=== PATIENT | female | born 1955 | race Caucasian/White ===

== ENCOUNTER → 2016-11-26 | Outpatient (CLI) | payer BC ==
[2016-11-26 09:25] LABS: Basophils # (A) 0.1 k/uL (0-0.2); Basophils % (A) 1 %; CH 30.6; CHCM 34.6; Eosinophils # (A) 0.1 k/uL (0-0.7); Eosinophils % (A) 2 %; HCT 45.6 % (34.0-46.0); HDW 2.69; HGB 15.6 gm/dL (11.4-16.0); Luc # (Auto) 0.25; Luc % (Auto) 4; Lymphocytes # (A) 2.1 k/uL (1.0-4.8); Lymphocytes % (A) 34 %; MCH 30.4 pg (25.0-35.0); MCHC 34.1 g/dL (31.0-37.0); MCV 89.1 fL (80.0-100.0); Mean Platelet Volume 7.1; Monocytes # (A) 0.6 k/uL (0-1.0); Monocytes % (A) 10 %; Neutrophils # (A) 2.9 k/uL (1.3-7.7); Neutrophils % (A) 48 %; RBC 5.12 m/uL (3.80-5.40); RDW 12.9 % (11.5-15.5); WBC (Perox) 5.48
[2016-11-26 09:27] LABS: ALT 33 U/L (9-52); AST 31 U/L (14-36); Alkaline Phosphatase 85 U/L (38-126); Anion Gap 9 mmol/L; Blood Urea Nitrogen 18 mg/dL (7-17); Calcium 9.9 mg/dL (8.4-10.2); Carbon Dioxide 25 mmol/L (22-30); Chloride 108 mmol/L (98-107); Cholesterol 247 mg/dL (<200); Glucose 107 mg/dL (74-99); HDL Cholesterol 55 mg/dL (40-60); Non-African American GFR(MDRD) >60 (>60 ml/min/1.73 sqM); Potassium 4.8 mmol/L (3.5-5.1); Sodium 142 mmol/L (137-145); Total Bilirubin 0.8 mg/dL (0.2-1.3); Total Protein 7.8 g/dL (6.3-8.2); Triglycerides 191 mg/dL (<150)
--- NOTE | 2016-11-26 14:40 | MM ---
Reason for exam: screening (asymptomatic). Last mammogram was performed 1 year and 5 months ago. History: Patient is postmenopausal. Taking unspecified hormones for 1 year beginning at age 49. Physical Findings: A clinical breast exam by your physician is recommended on an annual basis and results should be correlated with mammographic findings. MG Screening Mammo w CAD Bilateral CC and MLO view(s) were taken. Prior study comparison: July 09, 2015, bilateral MG screening mammo w CAD. May 31, 2014, bilateral MG screening mammo w CAD. The breast tissue is almost entirely fat. There is no discrete abnormality. No significant changes when compared with prior studies. ASSESSMENT: Negative, BI-RAD 1 RECOMMENDATION: Routine screening mammogram of both breasts in 1 year.
== END | disposition home or self-care (01) ==
LOC: RADMAMWWP 08:31
PROVIDERS: ATTEND Family Medicine
DX: Z12.31 Encounter for screening mammogram for malignant neoplasm of breast (principal); Z00.01 Encounter for general adult medical examination with abnormal findings; E03.9 Hypothyroidism, unspecified
CPT/HCPCS: 84439; 80061; 80053; 84443; 85025; 36415; G0202

== ENCOUNTER → 2017-08-30 | Outpatient (CLI) | payer OTHER ==
--- NOTE | 2017-08-30 14:48 | CT ---
EXAMINATION TYPE: CT cervical spine wo con DATE OF EXAM: 08/30/2017 COMPARISON: NONE HISTORY: Cervical strain CT DLP: 316.[address] of the cervical spine was performed with bone and soft tissue window settings submitted . Coronal and sagittal reconstruction is obtained. C2-3: Within normal limits. C3-4: Moderate degenerative disc space narrowing. Mild circumferential disc bulge with mild effacemen t ventral thecal sac. No evidence for herniation or central stenosis. Degenerative change left-sided cervical apophyseal joint resulting in moderate left foraminal encroachment. C4-5: Moderate to severe degenerative disc space narrowing. Circumferential disc bulge with partial e ncapsulating spur resulting in disc endplate complex. Mild effacement ventral thecal sac. No central stenosis. Mild bilateral foraminal encroachment. C5-6: Changes of fusion. Pedicular screws are in place. Alignment is anatomic. No evidence for recurr ent or residual disease. No central stenosis or foraminal encroachment. C6-7: Changes of fusion. Pedicular screws are in place. Alignment is anatomic. No evidence for recurr ent or residual disease. No central stenosis or foraminal encroachment. C7-T1: Changes of fusion. Pedicular screws are in place. Alignment is anatomic. No evidence for recur rent or residual disease. No central stenosis or foraminal encroachment. Postoperative alignment is anatomic. No evidence for fracture or subluxation. IMPRESSION: 1. No evidence for fracture or subluxation. 2. Degenerative disc disease with a mild disc bulging and varying degrees of foraminal encroachment a s outlined above. 3. Postoperative changes as discussed.
--- NOTE | 2017-08-30 14:59 | XR ---
Thoracic spine HISTORY: Trauma and pain 3 views of the thoracic spine correlated to CT scan of the cervical spine same day Thoracic vertebral bodies show preserved alignment. Bone mineralization is reduced. There is mild mul tilevel spondylosis. There is a mild spinal curvature. Postop changes are noted at the cervicothoraci c junction. Mild kyphosis centered at C3. Question some mild anterior wedging. Superior endplate of C 6 also show some mild central depression. IMPRESSION: Difficult to exclude mild compression fracture T3 and T6 of indeterminate age.
== END | disposition home or self-care (01) ==
LOC: RADCTMAIN 14:09
PROVIDERS: ATTEND Emergency Medicine
DX: M50.31 Other cervical disc degeneration, high cervical region (principal); S13.4XXA Sprain of ligaments of cervical spine, initial encounter; S23.3XXA Sprain of ligaments of thoracic spine, initial encounter; Z98.890 Other specified postprocedural states
CPT/HCPCS: 72072; 72125

== ENCOUNTER → 2018-03-29 | Outpatient (CLI) | payer BC ==
--- NOTE | 2018-03-31 09:58 | MM ---
Reason for exam: screening (asymptomatic). Last mammogram was performed 1 year and 4 months ago. History: Patient is postmenopausal. Taking unspecified hormones for 1 year beginning at age 49. Physical Findings: A clinical breast exam by your physician is recommended on an annual basis and results should be correlated with mammographic findings. MG Screening Mammo w CAD Bilateral CC and MLO view(s) were taken. Prior study comparison: November 26, 2016, bilateral MG screening mammo w CAD. July 09, 2015, bilateral MG screening mammo w CAD. There are scattered fibroglandular densities. There is chronic nodularity in the right breast. No significant changes when compared with prior studies. ASSESSMENT: Negative, BI-RAD 1 RECOMMENDATION: Routine screening mammogram of both breasts in 1 year.
== END | disposition home or self-care (01) ==
LOC: RADMAMWWP 13:01
PROVIDERS: ATTEND Family Medicine
DX: Z12.31 Encounter for screening mammogram for malignant neoplasm of breast (principal)
CPT/HCPCS: 77067

== ENCOUNTER 2019-01-05 12:46 | Day surgery (SDC) | payer BC ==
[2019-01-02 14:37] VITALS: BMI 29.2
[~2019-01-05 12:46] MED LIST: LACTATED RINGERS 1,000 ML IV SCH
[2019-01-05 13:25] VITALS: TEMP 97.6
[2019-01-05] MEDS ORDERED: PROPOFOL 10 MG/ML 20 ML VIAL IV ONE (14:02)
--- NOTE | 2019-01-05 14:22 | P.PCN ---
Date of Procedure: 01/05/19 Procedure(s) Performed: BRIEF HISTORY: Patient is a 63-year-old pleasant female, scheduled for an elective colonoscopy as a part of screening for colorectal neoplasia. PROCEDURE PERFORMED: Colonoscopy with snare polypectomy. PREOPERATIVE DIAGNOSIS: Screening for colon cancer. IV sedation per Anesthesia. PROCEDURE: After informed consent was obtained, the patient, was brought into the endoscopy unit. IV sedation was administered by Anesthesia under continuous monitoring. Digital rectal examination was normal. Initially the Olympus CF-160 flexible video colonoscope was then inserted in the rectum, gradually advanced into the cecum without any difficulty. Careful examination was performed as the scope was gradually being withdrawn. Ileocecal valve and the appendiceal orifice were visualized and appeared normal. Prep was excellent. In the base of the cecum there was a 1 cm broad-based polyp that was removed by snare polypectomy. Rest of the mucosa of the cecum, ascending colon, transverse colon, appeared normal. In the descending colon there was another 5 mm polyp that was removed b y snare polypectomy. Scattered left-sided diverticulosis seen. Rest of the descending colon, sigmoid colon, and rectum appeared normal. Retroflexion was performed in the rectum and no lesions were seen. The patient tolerated the procedure well. IMPRESSION: 1 cm cecal polyp status post polypectomy 5 mm descending colon polyp status post polypectomy Scattered sigmoidal diverticulosis RECOMMENDATIONS: Findings of this examination were discussed with the patient as well as a family. She was advised to follow with the biopsy results. If the biopsy shows an adenoma, she can have a repeat colonoscopy in 3-5 years.
[2019-01-05 14:41] VITALS: BP 120/83; PULSE 65; RESP 16
== END 2019-01-05 15:20 | disposition home or self-care (01) ==
LOC: ORWHC2ENDO 12:46
PROVIDERS: ATTEND Internal Medicine Gastroenterology
DX: Z12.11 Encounter for screening for malignant neoplasm of colon (principal); K63.5 Polyp of colon; K57.30 Diverticulosis of large intestine without perforation or abscess without bleeding; E78.5 Hyperlipidemia, unspecified; E07.9 Disorder of thyroid, unspecified; Z79.899 Other long term (current) drug therapy; Z79.890 Hormone replacement therapy; Z88.5 Allergy status to narcotic agent; Z91.048 Other nonmedicinal substance allergy status
CPT/HCPCS: 45385; 88305; J2704

== ENCOUNTER → 2019-03-30 | Outpatient (CLI) | payer BC ==
--- NOTE | 2019-03-30 15:41 | US ---
EXAMINATION TYPE: US kidneys/renal and bladder DATE OF EXAM: 03/30/2019 COMPARISON: NONE CLINICAL HISTORY: N20.0 Kidney Stones. Patient stated passed 2 kidney stones recently and still has l eft flank pain. EXAM MEASUREMENTS: Right Kidney: 10.9 x 6.0 x 5.3 cm Left Kidney: 9.9 x 5.0 x 4.2 cm Post Void Residual Volume: 13.4 mL Right Kidney: No hydronephrosis or masses seen Left Kidney: No hydronephrosis or masses seen Bladder: wnl Bilateral Jets seen: Yes Normal Post Void Residual: Yes There is no evidence for hydronephrosis at this point in time. No nephrolithiasis is seen. No olvia s are identified. The urinary bladder is anechoic. Bilateral ureteral jets are seen. IMPRESSION: No hydronephrosis or nephrolithiasis.
== END | disposition home or self-care (01) ==
LOC: RADUSWWP 14:42
PROVIDERS: ATTEND Family Medicine
DX: N20.0 Calculus of kidney (principal)
CPT/HCPCS: 76770

== ENCOUNTER → 2019-04-27 | Outpatient (CLI) | payer BC ==
--- NOTE | 2019-04-30 09:44 | MM ---
Reason for exam: screening (asymptomatic). Last mammogram was performed 1 year and 1 month ago. History: Patient is postmenopausal. Taking unspecified hormones for 1 year beginning at age 49. Physical Findings: A clinical breast exam by your physician is recommended on an annual basis and results should be correlated with mammographic findings. MG Screening Mammo w CAD Bilateral CC and MLO view(s) were taken. Prior study comparison: March 29, 2018, bilateral MG screening mammo w CAD. November 26, 2016, bilateral MG screening mammo w CAD. The breast tissue is almost entirely fat. No significant changes when compared with prior studies. ASSESSMENT: Benign, BI-RAD 2 RECOMMENDATION: Routine screening mammogram of both breasts in 1 year.
== END | disposition home or self-care (01) ==
LOC: RADMAMWWP 15:54
PROVIDERS: ATTEND Family Medicine
DX: Z12.31 Encounter for screening mammogram for malignant neoplasm of breast (principal)
CPT/HCPCS: 77067

== ENCOUNTER → 2020-07-16 | Outpatient (CLI) | payer MEDICARE, BC ==
--- NOTE | 2020-07-16 08:42 | US ---
EXAMINATION TYPE: US pelvic complete DATE OF EXAM: 07/16/2020 COMPARISON: NONE CLINICAL HISTORY: 64-year-old female R10.9 Abdominal Pain, R10.2 Pelvic Pain. TECHNIQUE: Transabdominal FINDINGS: Public Health Outreach Worker notes: Limited exam due to body habitus EXAM MEASUREMENTS: Uterus: 5.4 x 2.4 x 3.3 cm Endometrial Stripe: .2 cm 1. Uterus: Anteverted and otherwise wnl 2. Endometrium: wnl 3. Right Ovary: Obscured by overlying bowel gas 4. Left Ovary: Obscured by overlying bowel gas 5. Bilateral Adnexa: wnl 6. Posterior cul-de-sac: wnl IMPRESSION: 1. The endometrial stripe is measured thin at 2 mm. 2. Bowel gas obscures both ovaries. Neither could be visualized. 3. No pelvic free fluid.
--- NOTE | 2020-07-16 08:48 | US ---
EXAMINATION TYPE: US abdomen complete DATE OF EXAM: 07/16/2020 COMPARISON: NONE CLINICAL HISTORY: 64-year-old female R10.9 Abdominal Pain, R10.2 Pelvic Pain. TECHNIQUE: Multiple sonographic images of the abdomen are obtained. FINDINGS: Shipping And Receiving Coordinator notes: Exam limited due to body habitus EXAM MEASUREMENTS: Liver Length: 15.5 cm Gallbladder Wall: 2.8 mm CBD: .3 cm Spleen: 8.1 cm Right Kidney: 9.4 x 3.9 x 3.9 cm Left Kidney: 9.3 x 4.8 x 4.4 cm Pancreas: Obscured by bowel gas. Only a small portion of the pancreatic neck and head are visualized showing no gross abnormality. Liver: Increased echogenicity. No focal lesion identified. Gallbladder: No abnormal distention, surrounding fluid, wall thickening, or stones seen Evidence for sonographic Venegas's sign: No CBD: wnl Spleen: wnl Right Kidney: wnl Left Kidney: wnl Upper IVC: wnl Abd Aorta: wnl IMPRESSION: 1. At least moderate hepatic steatosis. 2. No gallstones or biliary ductal dilatation.
== END | disposition home or self-care (01) ==
LOC: RADUSWWP 07:03
PROVIDERS: ATTEND Family Medicine
DX: K76.0 Fatty (change of) liver, not elsewhere classified (principal); R10.2 Pelvic and perineal pain; R14.3 Flatulence
CPT/HCPCS: 76700; 76856

== ENCOUNTER → 2020-07-23 | Outpatient (CLI) | payer MEDICARE ==
--- NOTE | 2020-07-25 12:05 | MM ---
Reason for exam: screening (asymptomatic). Last mammogram was performed 1 year and 3 months ago. History: Patient is postmenopausal. Taking unspecified hormones for 1 year beginning at age 49. Physical Findings: A clinical breast exam by your physician is recommended on an annual basis and results should be correlated with mammographic findings. MG 3D Screening Mammo W/Cad Bilateral CC and MLO view(s) were taken. Prior study comparison: April 27, 2019, bilateral MG screening mammo w CAD. March 29, 2018, bilateral MG screening mammo w CAD. There are scattered fibroglandular densities. There is chronic nodularity in the right breast. No significant changes when compared with prior studies. ASSESSMENT: Benign, BI-RAD 2 RECOMMENDATION: Routine screening mammogram of both breasts in 1 year.
== END | disposition home or self-care (01) ==
LOC: RADMAMWWP 11:09
PROVIDERS: ATTEND Family Medicine
DX: Z12.31 Encounter for screening mammogram for malignant neoplasm of breast (principal)
CPT/HCPCS: 77063; 77067

== ENCOUNTER 2021-08-11 10:41 | Day surgery (SDC) | payer MEDICARE ==
[2021-08-06 14:14] VITALS: BMI 31.1
[~2021-08-11 10:41] MED LIST changes: +DEXAMETHASONE SOD PHOSPHATE 4 MG/ML 1 ML VIAL IV ONE; +HYDROmorphone 0.5 MG/0.5 ML SYRINGE IVP PRN; +MIDAZOLAM 2 MG/2 ML VIAL IV PRN; +ONDANSETRON 4 MG/2 ML VIAL IVP ONE
[2021-08-11] MEDS ORDERED: LIDOCAINE 1% (10MG/ML) FOR IV START INTRADERMA ONE (11:15)
[2021-08-11] MEDS ORDERED: MIDAZOLAM 2 MG/2 ML VIAL IVP ONE ×2 (11:51→11:55)
--- NOTE | 2021-08-11 12:11 | P.ANPRN ---
Procedure Note - Anesthesia - Nerve Block Performed Right Supraclavicular Single Time Out Performed: Yes ([id number]) Date of Procedure: 08/11/21 Procedure Start Time: 11:56 Procedure Stop Time: 12:00 Location of Patient: PreOp Indication: Acute Post-Operative Pain, Analgesia, Dx/Pain Location, Requested by Surgeon Sedation Type: Sedate with meaningful contact maintained Preparation: Sterile Prep, Sterile Dressing Position: Sitting Catheter: None Needle Types: Pajunk Needle Gauge: 21 Ultrasound used to visualize needle placement: Yes Ultrasound used to observe medication spread: Yes Injectate: 0.5% Ropivacaine (see comment for volume) (20 mL mixed with 4 MG of dexamethasone) Blood Aspirated: No Pain Paresthesia on Injection Noted: No Resistance on Injection: Normal Image Stored and Saved: Yes Events: Uneventful and Well Tolerated
[2021-08-11] MEDS ORDERED: HYDROCORTISONE SUCCINATE 100 MG/2 ML VIAL ONE (12:30)
[2021-08-11] MEDS ORDERED: PROPOFOL 10 MG/ML 20 ML VIAL IV ONE (12:30)
[2021-08-11] MEDS ORDERED: SUCCINYLCHOLINE CHLORIDE 100 MG/5 ML SYR IV ONE (12:30)
[2021-08-11] MEDS ORDERED: DEXAMETHASONE SOD PHOSPHATE 4 MG/ML 1 ML VIAL ONE (12:30)
[2021-08-11] MEDS ORDERED: KETOROLAC 15 MG/ML 1 ML VIAL ONE (12:30)
[2021-08-11] MEDS ORDERED: PHENYLEPHRINE-0.9% NACL SYG 1,000 MCG/10 ML SYRINGE ONE (12:30)
[2021-08-11] MEDS ORDERED: ROPIVACAINE 5 MG/ML 30 ML VIAL ONE (12:30)
[2021-08-11] MEDS ORDERED: fentaNYL (PF) 50 MCG/ML 2 ML AMP ONE (12:30)
[2021-08-11] MEDS ORDERED: MIDAZOLAM 2 MG/2 ML VIAL ONE (12:30)
[2021-08-11] MEDS ORDERED: LACTATED RINGERS 1,000 ML IV ONE (14:10)
[2021-08-11 14:59] VITALS: TEMP 97.6
[2021-08-11 15:53] VITALS: PULSE 91
[2021-08-11 16:34] VITALS: BP 160/79; RESP 20
--- NOTE | 2021-08-11 17:40 | P.OP ---
Date of Procedure: 08/11/21 Preoperative Diagnosis: Right radial head fractur Postoperative Diagnosis: same Procedure(s) Performed: Right radial head arthroplasty Implants: Align Radial Head, Size 9 with 0 neck stem, 22mm radial head Anesthesia: lennie WILSON Surgeon: Shira Rincon Boring Machine Operator Vertical #1: Irais Gardner Estimated Blood Loss (ml): 25 Condition: stable Disposition: PACU Indications for Procedure: Magda is a 66 year old female who tripped over some wires on 07/27/21 sustai eber a right radial head fracture. It is intra-articular, displaced, and comminuted. After discussing treatment options, the patient would like to proceed with radial head arthroplasty. Description of Procedure: Patient, procedure, and operative extremity were identified in the preop holding area. After informed consent was obtained, she received a regional block by the anesthesia team. She was then brought back to the operating room where the right upper extremity was prepped and draped in normal sterile fashion with a sterile tourniquet along the brachium. A formal timeout was performed and the tourniquet was inflated. Oblique incision was made on the lateral aspect of the elbow from the lateral epicondyle crossing the radial head. Dissection was carried down to the forearm fascia and the EDC tendon was identified. This was split longitudinally in line with the incision. The capsule was identified. The capsule, annular ligament and radial collateral ligaments were incised in line as well. This incision was anterior to the equator of the capitellum to protect the lateral ulnar collateral ligament. The radial fracture was identified. There were two intraarticular pieces and the radial head was completed from the radial neck. These pieces were removed and placed in the measuring tray. It was 24mm at the outer diameter. With the forearm in pronation to protect the PIN, the bone clamp was then placed on the radial neck. The measuring device was used to chana out a neck cut that corresponded with a zero neck. An oscillating saw as the used to cut the neck at the appropriate level. Serial reamers were then used to remove cancellous bone. A size 9 reamer had good fit. A size 10 reamer was inserted to fine tune the opening. We then used a planer to level the neck. A trial implant was then inserted. The elbow was taken through a full range of motion and positioning of the trial was confirmed on fluoroscopy. A size 9 implant with a zero neck and 22mm head was appropriate. The trial was then removed. The wound was copiously irrigated with normal saline. The final implants were then inserted. The stem was tapped into place with a good fit. The head was then placed onto the stem with the screw and loosely afixed. The positioning jig was then assembled. With the tip in the fovea of the ulna, the tilt of the head/neck interface was adjusted to 30 degrees of pronation. The screw was tightened with the torque limiter. We then took the elbow through a full range of motion and rechecked implant positioning on fluoroscopy. Elbow had full extension and 140 deg of flexion without any instability with varus and valgus stress. The wound was again irrigated and the tourniquet was let down. Hemostasis was achieved and the EDC tendon split was repaired with 0 vicryl. The remainder of the wound was closed with 3.0 vicryl, 4-0 monocryl, and skin glue. Wound was dressed with adaptic, gauze, and an keegan wrap. She was aroused by the anesthesia team and brought to pacu in stable condition.
== END 2021-08-11 17:16 | disposition home or self-care (01) ==
LOC: OR 10:41
PROVIDERS: ATTEND Orthopaedic Surgery Hand Surgery
DX: S52.121A Displaced fracture of head of right radius, initial encounter for closed fracture (principal); Z20.822 Contact with and (suspected) exposure to COVID-19; W01.0XXA Fall on same level from slipping, tripping and stumbling without subsequent striking against object, initial encounter
CPT/HCPCS: 24365; 87635; J2250; J1100; J0690; J2405; 64415; 76942

== ENCOUNTER → 2021-12-11 | Outpatient (CLI) | payer MEDICARE ==
--- NOTE | 2021-12-15 17:37 | MM ---
Reason for Exam: Screening (asymptomatic). Last mammogram was performed 1 year(s) and 4 month(s) ago. Patient History: Menarche at age 13. First Full-Term at age 23. Postmenopausal. Hormonal Contraceptives for 10 years from age 21 until age 31. Risk Values: Maribel 5 year model risk: 1.4%. NCI Lifetime model risk: 4.8%. Film Views: Bilateral CC views were taken. Bilateral MLO views were taken. Prior Study Comparison: 03/29/2018 Bilateral Screening Mammogram, [facility]. 04/27/2019 Bilateral Screening Mammogram, [facility]. 07/23/2020 Bilateral Screening Mammogram, [facility]. Tissue Density: There are scattered fibroglandular densities. Findings: Analyzed By CAD. Chronic nodularity lateral right breast. No significant change from prior exams. Overall Assessment: Benign, BI-RAD 2 Management: Screening Mammogram of both breasts in 1 year. A clinical breast exam by your physician is recommended on an annual basis and results should be correlated with mammographic findings. Also, the patient should continue monthly self breast exams. Electronically signed and approved by: Kael Grigsby M.D. Radiologist
== END | disposition home or self-care (01) ==
LOC: RADMAMWWP 11:08
PROVIDERS: ATTEND Family Medicine
DX: Z12.31 Encounter for screening mammogram for malignant neoplasm of breast (principal); Z78.0 Asymptomatic menopausal state
CPT/HCPCS: 77063; 77067

== ENCOUNTER → 2022-12-14 | Outpatient (CLI) | payer MEDICARE ==
--- NOTE | 2022-12-15 19:26 | MM ---
Reason for Exam: Screening (asymptomatic). Last screening mammogram was performed 12 month(s) ago. Patient History: Menarche at age 13. First Full-Term at age 23. Postmenopausal. Hormonal Contraceptives for 10 years from age 21 until age 31. Risk Values: Maribel 5 year model risk: 1.4%. NCI Lifetime model risk: 4.6%. Prior Study Comparison: 04/27/2019 Bilateral Screening Mammogram, [facility]. 07/23/2020 Bilateral Screening Mammogram, [facility]. 12/11/2021 Bilateral MG 3D screening mammo w/cad, [facility]. Tissue Density: There are scattered fibroglandular densities. Findings: Analyzed By CAD. Chronic nodularity upper outer quadrant right breast. There is no suspicious group of microcalcifications or new suspicious mass in either breast. Overall Assessment: Benign, BI-RAD 2 Management: Screening Mammogram of both breasts in 1 year. . Patient should continue monthly self-breast exams. A clinical breast exam by your physician is recommended on an annual basis. This exam should not preclude additional follow-up of suspicious palpable abnormalities. Note on Maribel scores and lifetime risk: 1. A Mairbel score greater than 3% is considered moderate risk. If this is the case, consider specialist referral to assess eligibility for a risk reducing agent. 2. If overall lifetime risk for the development of breast cancer is 20% or higher, the patient may qualify for future screening with alternating mammogram and breast MRI. Electronically signed and approved by: Kael Grigsby M.D. Radiologist
== END | disposition home or self-care (01) ==
LOC: RADMAMWWP 13:34
PROVIDERS: ATTEND Family Medicine
DX: Z12.31 Encounter for screening mammogram for malignant neoplasm of breast (principal); Z78.0 Asymptomatic menopausal state
CPT/HCPCS: 77063; 77067

== ENCOUNTER → 2024-02-16 | Outpatient (CLI) | payer MEDICARE ==
--- NOTE | 2024-03-13 11:37 | MM ---
Reason for Exam: Screening (asymptomatic). Last mammogram was performed 1 year(s) and 3 month(s) ago. Patient History: Menarche at age 13. First Full-Term at age 23. Postmenopausal. Hormonal Contraceptives for 10 years from age 21 until age 31. Risk Values: Merlyn 5 year model risk: 1.4%. NCI Lifetime model risk: 4.3%. Prior Study Comparison: 07/23/2020 Bilateral Screening Mammogram, [facility]. 12/11/2021 Bilateral MG 3D screening mammo w/cad, [facility]. 12/14/2022 Bilateral MG 3D screening mammo w/cad, [facility]. Tissue Density: The breasts are almost entirely fatty. Findings: Analyzed By CAD. Chronic nodularity lateral right breast. There is no suspicious group of microcalcifications or new suspicious mass in either breast. Overall Assessment: Benign, BI-RAD 2 Management: Screening Mammogram of both breasts in 1 year. 1. Screening Mammogram Bilateral in 1 Year . 2. Patient should continue monthly self-breast exams. A clinical breast exam by your physician is recommended on an annual basis. 3. This exam should not preclude additional follow-up of suspicious palpable abnormalities. NOTE ON MERLYN SCORES AND LIFETIME RISK: 1. A Merlyn score greater than 3% is considered moderate risk. If this is the case, consider specialist referral to assess eligibility for a risk reducing agent. 2. If overall lifetime risk for the development of breast cancer is 20% or higher, the patient may qualify for future screening with alternating mammogram and breast MRI. Electronically signed and approved by: Kael Grigsby M.D. Radiologist
== END | disposition home or self-care (01) ==
LOC: RADMAMWWP 16:13
PROVIDERS: ATTEND Family Medicine
DX: Z12.31 Encounter for screening mammogram for malignant neoplasm of breast (principal); Z78.0 Asymptomatic menopausal state
CPT/HCPCS: 77063; 77067

== ENCOUNTER → 2024-08-10 | Outpatient (CLI) | payer MEDICARE ==
--- NOTE | 2024-08-10 08:40 | US ---
EXAMINATION TYPE: US carotid duplex BILAT DATE OF EXAM: 08/10/2024 COMPARISON: NONE CLINICAL INDICATION: Female, 69 years old with history of R09.89 OTHER SPECIFIED SYMPTOMS AND SIGN CI RCULATION; Bruit Additional History: .... TECHNIQUE: Grayscale, color Doppler and spectral Doppler evaluation of the bilateral carotid systems and vertebral arteries. Indirect Doppler criteria was utilized. FINDINGS: EXAM MEASUREMENTS: RIGHT: Peak Systolic Velocity (PSV) cm/sec ----- Right CCA: 78.5 ----- Right ICA: 91.4 ----- Right ECA: 115 ICA/CCA ratio: 1.2 RIGHT: End Diastole cm/sec ----- Right CCA: 20.2 ----- Right ICA: 29.5 ----- Right ECA: 9.5 LEFT: Peak Systolic Velocity (PSV) cm/sec ----- Left CCA: 87.2 ----- Left ICA: 82.0 ----- Left ECA: 91.8 ICA/CCA ratio: 0.9 LEFT: End Diastole cm/sec ----- Left CCA: 22.5 ----- Left ICA: 28.9 ----- Left ECA: 18.9 VERTEBRALS (direction of flow): Right Vertebral: Antegrade Left Vertebral: Antegrade Rhythm: Normal DISPATCH SPECIALIST NOTES: Mild plaque seen in Rt bulb No elevated velocities or significant stenosis seen bilaterally Color Doppler imaging shows patency with blood flow throughout the carotid artery. Spectral waveforms are within normal limits. IMPRESSION: Right: No hemodynamically significant stenosis. Left: No hemodynamically significant stenosis. Criteria for Assigning % of Stenosis / Diameter reduction (Estimation based on the indirect measurements of the internal carotid artery velocities (ICA PSV). 1. Normal (no stenosis)=ICA PSV < 125 cm/s: ratio < 2.0: ICA EDV<40 cm/s. 2. Less than 50% stenosis=ICA PSV < 125 cm/s: ratio < 2.0: ICA EDV<40 cm/s. 3. 50 to 69% stenosis=ICA PSV of 125 to 230 cm/s: ration 2.0 ? 4.0: ICA EDV 40-100 cm/s. 4. Greater than 70% stenosis to near occlusion= ICA PSV > 230 cm/s: ratio > 4.0: ICA EDV > 100 cm/s. 5. Near occlusion= ICA PSV velocities may be low or undetectable: variable ratio and ICA EDV. 6. Total occlusion=unable to detect flow. [facility], , 08/10/2024 8:37 AM
== END | disposition home or self-care (01) ==
LOC: RADUSWWP 07:48
PROVIDERS: ATTEND Family Medicine
DX: R09.89 Other specified symptoms and signs involving the circulatory and respiratory systems (principal)
CPT/HCPCS: 93880

== ENCOUNTER 2024-09-12 08:32 | Day surgery (SDC) | payer MEDICARE ==
[2024-09-12] MEDS: IV FLUID CONTINUATION 1,000 ML IV ONE (09:05)
[2024-09-12] MEDS: LACTATED RINGERS 1,000 ML IV SCH (09:18)
[2024-09-12] MEDS ORDERED: PROPOFOL 10 MG/ML 20 ML VIAL IV ONE (09:46)
--- NOTE | 2024-09-12 10:09 | P.PCN ---
Date of Procedure: 09/12/24 Procedure(s) Performed: BRIEF HISTORY: Patient is a 69-year-old pleasant white female scheduled for an elective colonoscopy as a part of screening for colon cancer. PROCEDURE PERFORMED: Colonoscopy with snare polypectomy. PREOPERATIVE DIAGNOSIS: Screening for colon cancer. IV sedation per Anesthesia. PROCEDURE: After informed consent was obtained, the patient, was brought into the endoscopy unit. IV sedation was administered by Anesthesia under continuous monitoring. Digital rectal examination was normal. Initially the Olympus CF-160 flexible video colonoscope was then inserted in the rectum, gradually advanced into the cecum without any difficulty. Careful examination was performed as the scope was gradually being withdrawn. Ileocecal valve and the appendiceal orifice were visualized and appeared normal. Prep was excellent. Mucosa of the cecum, normal. Descending colon there was a 7 mm polyp that was removed by cold snare polypectomy. Rest of the ascending colon, transverse colon, descending colon, sigmoid colon, and rectum appeared normal scattered sigmoid diverticulosis.. Retroflexion was performed in the rectum and no lesions were seen. The patient tolerated the procedure well. IMPRESSION: 7 mm ascending colon polyp status post cold snare polypectomy scattered sigmoid Rest of the colon appeared normal. RECOMMENDATIONS: Findings of this examination were discussed with the patient as well as her family. She was advised to follow-up with the biopsy results. If the biopsy reveals adenoma she can have repeat colonoscopy in 5 years..
[2024-09-12 10:46] VITALS: BP 136/86; PULSE 51; RESP 18
== END 2024-09-12 11:02 | disposition home or self-care (01) ==
LOC: ORWHC2ENDO 08:32
PROVIDERS: ATTEND Internal Medicine Gastroenterology
DX: Z12.11 Encounter for screening for malignant neoplasm of colon (principal); K63.5 Polyp of colon; K57.30 Diverticulosis of large intestine without perforation or abscess without bleeding; E78.5 Hyperlipidemia, unspecified; E07.9 Disorder of thyroid, unspecified; L23.1 Allergic contact dermatitis due to adhesives; Z88.5 Allergy status to narcotic agent; Z79.02 Long term (current) use of antithrombotics/antiplatelets; Z79.890 Hormone replacement therapy; Z79.899 Other long term (current) drug therapy
CPT/HCPCS: 45385; J2704; 88305